=== PATIENT | male | born 1950 | race Caucasian/White ===

== ENCOUNTER 2022-02-13 12:19 | Inpatient (IN) | payer MEDICARE, SELFPAY ==
[~2022-02-13 12:19] MED LIST: Iopamidol-370 76% 500 ML 1 ML ONE
[2022-02-13] MEDS ORDERED: Morphine 4 MG/ML VIAL ONE (12:31)
[2022-02-13 13:11] LABS: #Basophils 0.1 thou/uL (0.0-0.2); #Lymphocytes 0.6 thou/uL (1.20-3.40); #Monocytes 1.1 thou/uL (0.11-0.59); #Neutrophils 15.3 thou/uL (1.40-6.50); %Basophils 0.3 % (0.0-1.0); %Eosinophils 0.1 % (0.0-10.0); %Lymphocytes 3.6 % (21.0-51.0); %Monocytes 6.3 % (0.0-10.0); %Neutrophils 89.6 % (42.0-75.0); Hemoglobin 16.2 g/dL (14.0-18.0); Mean Corpuscular HGB CONC 33.5 g/dL (32.0-36.0); Mean Corpuscular Hemoglobin 31.7 pg (27.0-31.0); Mean Corpuscular Volume 94.7 fl (78.0-98.0); Mean Platelet Volume 8.9 fL (7.4-10.4); Platelet Count 192 10x3/uL (130-400); RBC Distribution Width 13.3 % (11.5-14.5); Red Blood Cell (RBC) Count 5.11 mill/uL (4.70-6.10); White Blood Cell (WBC) Count 17.1 10x3/uL (4.8-10.8)
[2022-02-13 13:27] LABS: ALT (SGPT) 14 U/L (8-55); AST (SGOT) 12 U/L (5-34); Albumin 4.2 g/dL (3.4-4.8); Alkaline Phosphatase 67 U/L (40-110); Anion Gap 15 mmol/L (10-20); BUN (Urea Nitrogen) 16 mg/dL (8.4-25.7); Bilirubin, Total 0.7 mg/dL (0.2-1.2); CRP (Inflammatory) 12.08 mg/dL (= or < 0.5); Calc. Creatinine Clearance 0 mL/min (70-130); Calcium 9.7 mg/dL (7.8-10.44); Carbon Dioxide 24 mmol/L (23-31); Chloride 97 mmol/L (98-107); Estimated GFR 80; Globulin 3.7 g/dL (2.4-3.5); Glucose 167 mg/dL (83-110); Potassium 4.1 mmol/L (3.5-5.1); Protein, Total 7.9 g/dL (5.8-8.1); Sodium 132 mmol/L (136-145)
[2022-02-13] MEDS ORDERED: Vancomycin 1 GM/200 ML (FROZEN) BAG ONE (13:42)
[2022-02-13] MEDS ORDERED: Cefepime 1 GM VIAL ONE (13:42)
[2022-02-13 14:36] LABS: Bilirubin Negative (Negative); Blood, Urine Negative (Negative); Clarity Clear (Clear); Glucose, Urine (Dipstick) Normal (Negative); Ketone, Urine Negative (Negative); Leukocyte Negative Leu/uL (Negative); Nitrite Negative (Negative); Protein, Urine (Dipstick) 20 mg/dL (Neg-Trace); Specific Gravity, Urine 1.017 (1.002-1.036); Urobilinogen 3 mg/dL (Less than 2)
[2022-02-13] MEDS ORDERED: Labetalol HCl 100 MG/20 ML VIAL ONE (15:04)
[2022-02-13 15:49] LABS: Lactic Acid 1.6 mmol/L (0.5-2.2)
[2022-02-13] MEDS ORDERED: Senokot S 8.6-50 MG TAB PO PRN (16:21)
[2022-02-13] MEDS ORDERED: Dextrose 50% Abboject 50 ML SYRINGE SLOW IVP PRN (16:26)
[2022-02-13] MEDS ORDERED: Dextrose 5% in Water 1,000 ML IV PRN (16:26)
[2022-02-13] MEDS ORDERED: Enoxaparin Sodium 40 MG/0.4 ML SYRINGE SC SCH (16:30)
[2022-02-13 19:55] VITALS: BMI 44.6
[2022-02-13] MEDS: HYDROcodone/Acetaminophen 5/325 mg Tablet PO PRN (19:58)
[2022-02-13] MEDS: Nicotine 14 MG PATCH TD SCH (19:59)
[2022-02-13] MEDS: Amlodipine 5 MG TAB PO SCH (19:59)
[2022-02-13] MEDS ORDERED: Piperacillin/Tazobactam 3.375 GM in Sodium Chloride 0.9% 100 ML IVPB SCH (20:45)
[2022-02-13] MEDS ORDERED: Famotidine 20 MG TAB PO SCH (21:00)
[2022-02-13] MEDS ORDERED: Piperacillin/Tazobactam 4.5 GM in Sodium Chloride 0.9% 100 ML IVPB SCH (22:00)
[2022-02-14] MEDS: Piperacillin/Tazobactam 3.375 GM in Sodium Chloride 0.9% 100 ML IVPB SCH ×3 (00:26→19:54)
[2022-02-14] MEDS: Vancomycin HCl 1.75 GM in Sodium Chloride 0.9% 500 ML IVPB SCH ×2 (03:20→16:14)
[2022-02-14] MEDS: HYDROcodone/Acetaminophen 5/325 mg Tablet PO PRN ×2 (05:02→11:34)
[2022-02-14 05:42] LABS: ALT (SGPT) 13 U/L (8-55); AST (SGOT) 17 U/L (5-34); Albumin 3.5 g/dL (3.4-4.8); Alkaline Phosphatase 59 U/L (40-110); Anion Gap 14 mmol/L (10-20); BUN (Urea Nitrogen) 12 mg/dL (8.4-25.7); Bilirubin, Total 0.6 mg/dL (0.2-1.2); Calc. Creatinine Clearance 143 mL/min (70-130); Calcium 9.1 mg/dL (7.8-10.44); Carbon Dioxide 26 mmol/L (23-31); Chloride 98 mmol/L (98-107); Estimated GFR 83; Globulin 3.8 g/dL (2.4-3.5); Glucose 165 mg/dL (83-110); Potassium 4.2 mmol/L (3.5-5.1); Protein, Total 7.3 g/dL (5.8-8.1); Sodium 134 mmol/L (136-145)
[2022-02-14] MEDS: Atorvastatin Calcium 40 MG TAB PO SCH (09:23)
[2022-02-14] MEDS: Lisinopril 20 MG TAB PO SCH (09:23)
[2022-02-14] MEDS: Carvedilol 6.25 MG TAB PO SCH ×2 (09:23→19:54)
[2022-02-14] MEDS: Furosemide 20 MG TAB PO SCH (09:23)
[2022-02-14] MEDS: Famotidine 20 MG TAB PO SCH (09:23)
[2022-02-14] MEDS: HumaLOG 300 UNITS/3 ML VIAL SC PRN ×2 (11:34→16:44)
[2022-02-14] MEDS ORDERED: hydrALAZINE 20 MG/ML VIAL SLOW IVP PRN (16:08)
[2022-02-14] MEDS ORDERED: hydrALAZINE 20 MG/ML VIAL SLOW IVP SCH (16:15)
[2022-02-14] MEDS: Nicotine 14 MG PATCH TD SCH (16:45)
[2022-02-14] MEDS: Amlodipine 5 MG TAB PO SCH (19:55)
[2022-02-14] MEDS: Acetaminophen 325 MG TAB PO PRN (19:55)
[2022-02-15] MEDS: HYDROcodone/Acetaminophen 5/325 mg Tablet PO PRN ×2 (01:05→05:33)
[2022-02-15] MEDS: Piperacillin/Tazobactam 3.375 GM in Sodium Chloride 0.9% 100 ML IVPB SCH ×2 (01:07→09:39)
[2022-02-15] MEDS: Vancomycin HCl 1.75 GM in Sodium Chloride 0.9% 500 ML IVPB SCH ×2 (03:19→17:42)
[2022-02-15 05:18] LABS: Hemoglobin A1c 6.8 % (4.0-6.0); Lactic Acid 1.5 mmol/L (0.5-2.2)
[2022-02-15 05:30] LABS: Phosphorus 2.2 mg/dL (2.3-4.7)
[2022-02-15 05:33] LABS: ALT (SGPT) 16 U/L (8-55); AST (SGOT) 15 U/L (5-34); Albumin 3.4 g/dL (3.4-4.8); Alkaline Phosphatase 64 U/L (40-110); Anion Gap 14 mmol/L (10-20); BUN (Urea Nitrogen) 10 mg/dL (8.4-25.7); Bilirubin, Total 0.5 mg/dL (0.2-1.2); Calc. Creatinine Clearance 158 mL/min (70-130); Carbon Dioxide 27 mmol/L (23-31); Chloride 97 mmol/L (98-107); Estimated GFR 92; Globulin 3.5 g/dL (2.4-3.5); Glucose 163 mg/dL (83-110); Magnesium 1.6 mg/dL (1.6-2.6); Potassium 3.6 mmol/L (3.5-5.1); Protein, Total 6.9 g/dL (5.8-8.1); Sodium 134 mmol/L (136-145)
[2022-02-15 05:57] LABS: Free T4 (Free Thyroxine) 0.91 ng/dL (0.70-1.48)
[2022-02-15] MEDS ORDERED: Nicotine 14 MG PATCH TD PRN (08:54)
[2022-02-15] MEDS ORDERED: Electrolyte Replacement Protocol 1 EACH FS SCH (09:15)
[2022-02-15] MEDS ORDERED: Electrolyte Replacement Protocol FS PRN (09:30)
[2022-02-15] MEDS ORDERED: Magnesium 2 GM/50 ML(in water) 2 GM in Premix Bag 1 BAG IVPB SCH (09:30)
[2022-02-15] MEDS: Famotidine 20 MG TAB PO SCH (09:38)
[2022-02-15] MEDS: Carvedilol 6.25 MG TAB PO SCH ×2 (09:38→21:56)
[2022-02-15] MEDS: Atorvastatin Calcium 40 MG TAB PO SCH (09:38)
[2022-02-15] MEDS: Furosemide 20 MG TAB PO SCH (09:39)
[2022-02-15] MEDS: Lisinopril 20 MG TAB PO SCH (09:39)
[2022-02-15] MEDS ORDERED: Potassium Chloride 20 MEQ TAB PO SCH (12:15)
[2022-02-15] MEDS ORDERED: Furosemide 40 MG TAB PO SCH (14:00)
[2022-02-15] MEDS: cefTRIAXone\\ROCEPHIN 2 GM in Sodium Chloride 0.9% 100 ML IVPB SCH (14:02)
[2022-02-15 15:04] LABS: Vancomycin, Trough 12.2 ug/mL
[2022-02-15] MEDS: K-Phos Neutral 250 MG TAB PO SCH (17:42)
[2022-02-15] MEDS: Amlodipine 5 MG TAB PO SCH (21:56)
[2022-02-15] MEDS: Senokot S 8.6-50 MG TAB PO SCH (21:57)
[2022-02-15] MEDS: Enoxaparin Sodium 40 MG/0.4 ML SYRINGE SC SCH (21:57)
[2022-02-15] MEDS ORDERED: HumaLOG 300 UNITS/3 ML VIAL SC PRN (22:04)
[2022-02-16] MEDS: HYDROcodone/Acetaminophen 5/325 mg Tablet PO PRN ×2 (02:52→09:57)
[2022-02-16] MEDS: Vancomycin HCl 1.75 GM in Sodium Chloride 0.9% 500 ML IVPB SCH ×2 (02:53→16:07)
[2022-02-16 05:35] LABS: ALT (SGPT) 37 U/L (8-55); AST (SGOT) 31 U/L (5-34); Albumin 3.5 g/dL (3.4-4.8); Alkaline Phosphatase 68 U/L (40-110); Anion Gap 14 mmol/L (10-20); BUN (Urea Nitrogen) 9 mg/dL (8.4-25.7); Bilirubin, Total 0.5 mg/dL (0.2-1.2); Calc. Creatinine Clearance 178 mL/min (70-130); Calcium 8.6 mg/dL (7.8-10.44); Carbon Dioxide 29 mmol/L (23-31); Chloride 95 mmol/L (98-107); Estimated GFR 95; Globulin 2.9 g/dL (2.4-3.5); Glucose 187 mg/dL (83-110); Magnesium 1.7 mg/dL (1.6-2.6); Potassium 3.7 mmol/L (3.5-5.1); Protein, Total 6.4 g/dL (5.8-8.1); Sodium 134 mmol/L (136-145)
[2022-02-16 05:44] LABS: Phosphorus 2.7 mg/dL (2.3-4.7)
[2022-02-16 05:48] LABS: Hemoglobin 13.8 g/dL (14.0-18.0); Mean Corpuscular HGB CONC 32.9 g/dL (32.0-36.0); Mean Corpuscular Hemoglobin 30.9 pg (27.0-31.0); Mean Platelet Volume 8.7 fL (7.4-10.4); Platelet Count 174 10x3/uL (130-400); RBC Distribution Width 13.3 % (11.5-14.5); Red Blood Cell (RBC) Count 4.45 mill/uL (4.70-6.10); White Blood Cell (WBC) Count 8.2 10x3/uL (4.8-10.8)
[2022-02-16 05:49] LABS: Band 9 % (5-11); Eosinophils 1 % (0-10); Hypochromia SLIGHT = 6-15 cells (100X) (0-5/hpf); Lymphocytes 6 % (21-51); MDiff Complete? YES; Monocytes 10 % (0-10); Neutrophil 73 % (42-75); Platelet Morphology Comment Appears Adequate; Reactive Lymphocytes 1 % (0-10)
[2022-02-16] MEDS: HumaLOG 300 UNITS/3 ML VIAL SC PRN ×4 (06:33→18:01)
[2022-02-16] MEDS ORDERED: Furosemide 40 MG TAB PO SCH (07:30)
[2022-02-16] MEDS ORDERED: FLU VACC QS2022-23(65YR UP)/PF 240 MCG/0.7 ML SYRINGE IM ONE (09:00)
[2022-02-16] MEDS: Senokot S 8.6-50 MG TAB PO SCH ×2 (09:39→22:00)
[2022-02-16] MEDS: K-Phos Neutral 250 MG TAB PO SCH ×3 (09:39→16:08)
[2022-02-16] MEDS: Aspirin 81 mg Enteric Coated Tablet PO SCH (09:39)
[2022-02-16] MEDS: Lisinopril 20 MG TAB PO SCH (09:40)
[2022-02-16] MEDS: Famotidine 20 MG TAB PO SCH (09:40)
[2022-02-16] MEDS: Carvedilol 6.25 MG TAB PO SCH ×2 (09:40→21:55)
[2022-02-16] MEDS: Atorvastatin Calcium 40 MG TAB PO SCH (09:40)
[2022-02-16] MEDS ORDERED: Magnesium 2 GM/50 ML(in water) 2 GM in Premix Bag 1 BAG IVPB SCH (12:00)
[2022-02-16] MEDS: cefTRIAXone\\ROCEPHIN 2 GM in Sodium Chloride 0.9% 100 ML IVPB SCH (12:14)
[2022-02-16] MEDS: Furosemide 40 MG TAB PO SCH (13:20)
[2022-02-16] MEDS: Enoxaparin Sodium 40 MG/0.4 ML SYRINGE SC SCH (21:55)
[2022-02-16] MEDS: Acetaminophen 325 MG TAB PO PRN (21:56)
[2022-02-16] MEDS: Amlodipine 5 MG TAB PO SCH (21:56)
[2022-02-17 01:58] LABS: #Basophils 0.1 thou/uL (0.0-0.2); #Eosinphils 0.2 thou/uL (0.0-0.7); #Neutrophils 5.6 thou/uL (1.40-6.50); %Basophils 0.9 % (0.0-1.0); %Eosinophils 2.2 % (0.0-10.0); %Lymphocytes 12.4 % (21.0-51.0); %Monocytes 13.2 % (0.0-10.0); %Neutrophils 71.3 % (42.0-75.0); Hemoglobin 14.4 g/dL (14.0-18.0); Mean Corpuscular HGB CONC 33.2 g/dL (32.0-36.0); Mean Corpuscular Hemoglobin 31.7 pg (27.0-31.0); Mean Corpuscular Volume 95.5 fl (78.0-98.0); Mean Platelet Volume 7.9 fL (7.4-10.4); Platelet Count 178 10x3/uL (130-400); RBC Distribution Width 13.3 % (11.5-14.5); Red Blood Cell (RBC) Count 4.53 mill/uL (4.70-6.10); White Blood Cell (WBC) Count 7.8 10x3/uL (4.8-10.8)
[2022-02-17 02:24] LABS: Vancomycin, Trough 14.5 ug/mL
[2022-02-17 02:49] LABS: Anion Gap 14 mmol/L (10-20); BUN (Urea Nitrogen) 12 mg/dL (8.4-25.7); Calc. Creatinine Clearance 164 mL/min (70-130); Calcium 8.7 mg/dL (7.8-10.44); Carbon Dioxide 28 mmol/L (23-31); Chloride 97 mmol/L (98-107); Estimated GFR 94; Glucose 182 mg/dL (83-110); Magnesium 1.8 mg/dL (1.6-2.6); Phosphorus 3.3 mg/dL (2.3-4.7); Potassium 3.4 mmol/L (3.5-5.1); Sodium 136 mmol/L (136-145)
[2022-02-17] MEDS: Vancomycin HCl 1.75 GM in Sodium Chloride 0.9% 500 ML IVPB SCH (04:32)
[2022-02-17] MEDS: HYDROcodone/Acetaminophen 5/325 mg Tablet PO PRN (04:43)
[2022-02-17] MEDS: HumaLOG 300 UNITS/3 ML VIAL SC PRN (06:30)
[2022-02-17] MEDS ORDERED: Magnesium 2 GM/50 ML(in water) 2 GM in Premix Bag 1 BAG IVPB SCH (08:00)
[2022-02-17] MEDS ORDERED: Potassium Chloride 20 MEQ TAB PO SCH (08:00)
[2022-02-17] MEDS: K-Phos Neutral 250 MG TAB PO SCH ×2 (08:41→12:38)
[2022-02-17] MEDS: Senokot S 8.6-50 MG TAB PO SCH (08:43)
[2022-02-17] MEDS: Furosemide 40 MG TAB PO SCH (08:43)
[2022-02-17] MEDS: Lisinopril 20 MG TAB PO SCH (08:43)
[2022-02-17] MEDS: Aspirin 81 mg Enteric Coated Tablet PO SCH (08:43)
[2022-02-17] MEDS: Atorvastatin Calcium 40 MG TAB PO SCH (08:44)
[2022-02-17] MEDS: Famotidine 20 MG TAB PO SCH (08:44)
[2022-02-17] MEDS: Carvedilol 6.25 MG TAB PO SCH (08:44)
[2022-02-17 12:06] VITALS: BP 144/90; TEMP 98.3
[2022-02-17] MEDS: cefTRIAXone\\ROCEPHIN 2 GM in Sodium Chloride 0.9% 100 ML IVPB SCH (14:18)
== END 2022-02-17 13:15 | disposition home or self-care (01) | DRG 871 ==
LOC: ERS 12:19 → 2NO 16:13
PROVIDERS: ADMIT Internal Medicine; ATTEND Internal Medicine
DX: A41.9 Sepsis, unspecified organism (principal); I50.33 Acute on chronic diastolic (congestive) heart failure; Z20.822 Contact with and (suspected) exposure to COVID-19; L03.116 Cellulitis of left lower limb; Z68.41 Body mass index [BMI] 40.0-44.9, adult; E87.20 Acidosis, unspecified; E87.1 Hypo-osmolality and hyponatremia; E87.6 Hypokalemia; E83.39 Other disorders of phosphorus metabolism; M19.072 Primary osteoarthritis, left ankle and foot; I11.0 Hypertensive heart disease with heart failure; E66.01 Morbid (severe) obesity due to excess calories; E78.5 Hyperlipidemia, unspecified; K21.9 Gastro-esophageal reflux disease without esophagitis; E11.9 Type 2 diabetes mellitus without complications; I87.2 Venous insufficiency (chronic) (peripheral); R94.6 Abnormal results of thyroid function studies; F17.210 Nicotine dependence, cigarettes, uncomplicated; G47.30 Sleep apnea, unspecified; E83.42 Hypomagnesemia; Z28.21 Immunization not carried out because of patient refusal; Z98.890 Other specified postprocedural states; Z79.899 Other long term (current) drug therapy; Z79.84 Long term (current) use of oral hypoglycemic drugs
CPT/HCPCS: 36415; 36416; 71045; 80048; 80053; 80202; 81003; 83036; 83605; 83735; 83880; 84100; 84439; 84443; 84481; 85025; 86140; 87040; 87086; 93005; 93306; 96374; 96375; J0360; J0692; J0696; J1650; J1815; J2270; J2543; J3370; J3370-JW; J3475; J3490; J7030; Q9967; U0003; U0005